=== PATIENT | female | born 1965 | race Caucasian/White ===

== ENCOUNTER → 2016-03-26 | Outpatient (CLI) | payer OTHER ==
--- NOTE | 2016-03-26 15:39 | KCIC ---
PROCEDURE Lumbar spine radiographs HISTORY Low back pain with radicular pain, left radiculopathy for about 10 years COMPARISON None FINDINGS Five views of the lumbar spine are submitted. Lumbar vertebral body stature is preserved. There is moderate to severe degenerative disc disease L5-S1 and to a lesser degree at L3-4 and L4-5, spondylosis at the same levels. There is facet degenerative change of the inferior lumbar spine. There is negligible posterior subluxation L5 relative to S1. There has been cholecystectomy. There is very mild lumbar dextroscoliosis. IMPRESSION There is degenerative disc disease greatest at L5-S1 and to a lesser degree at L4-5 and L3-4. There is spondylosis at the same levels. Electronically signed by: Shahbaz Dougherty MD (Mar 26, 2016 15:37:30)
== END | disposition home or self-care (01) ==
LOC: KCIC 14:55
PROVIDERS: ATTEND Family Medicine
DX: M54.16 Radiculopathy, lumbar region (principal); M51.37 Other intervertebral disc degeneration, lumbosacral region; M47.897 Other spondylosis, lumbosacral region
CPT/HCPCS: 72110